=== PATIENT | female | born 1995 | race Caucasian/White ===

== ENCOUNTER 2018-02-01 17:22 | Emergency (ER) | payer MEDICAID, OTHER ==
[~2018-02-01] VITALS: Ht 172.7 cm; Wt 59.0 kg
[2018-02-01 17:30] VITALS: BP 113/74
[2018-02-01] MEDS ORDERED: ALBU18HF2 IH (17:32)
== END 2018-02-01 23:23 | disposition left against medical advice (07) ==
LOC: ER 17:48
DX: R06.02 Shortness of breath (principal); J45.909 Unspecified asthma, uncomplicated
CPT/HCPCS: 99281

== ENCOUNTER 2022-02-21 01:32 | Emergency (ER) | payer MEDICAID ==
[~2022-02-21] VITALS: Ht 172.7 cm; Wt 90.0 kg
[~2022-02-21 01:32] MED LIST: ALBU18HF2 IH
[2022-02-21 02:49] LABS: BASOPHILS % 0.3 % (0.0-2.0); EOSINOPHILS % 0.4 % (0.0-5.0); HEMATOCRIT. 41.4 % (36.0-48.0); HEMOGLOBIN. 13.7 g/dL (12.0-16.0); LYMPHOCYTES % 12.2 % (20.0-50.0); MEAN CORPUSCULAR HEMOGLOBIN 27.7 pg (28.0-32.0); MEAN CORPUSCULAR VOLUME 83.6 fL (81.0-99.0); MONOCYTES % 2.5 % (2.0-8.0); NEUTROPHILS % 84.6 % (40.0-76.0); PLATELET 291 x1000/uL (130-400); RED BLOOD CELL COUNT 4.95 mill/uL (4.2-5.4); RED CELL DISTRIBUTION WIDTH 13.7 % (11.6-14.6)
[2022-02-21 03:06] LABS: CHLORIDE 115 mEq/L (98-107)
[2022-02-21 03:14] LABS: ETHANOL BLOOD 189 mg/dL
[2022-02-21 04:00] VITALS: BP 129/83
[2022-02-21] MEDS ORDERED: ACETAMINOPHEN 500MG TABLET PO ONE (04:00)
[2022-02-21 05:40] LABS: *AMPHETAMINES SCREEN URINE NEGATIVE (NEGATIVE); *BARBITURATES SCREEN URINE NEGATIVE (NEGATIVE); *BENZODIAZEPINES SCREEN URINE NEGATIVE (NEGATIVE); *COCAINE SCREEN URINE NEGATIVE (NEGATIVE); CANNABINOID URINE SCREEN NEGATIVE (NEGATIVE); METHADONE URINE SCREEN NEGATIVE (NEGATIVE); OPIATES URINE SCREEN NEGATIVE (NEGATIVE); PHENCYCLIDINE URINE SCREEN NEGATIVE (NEGATIVE)
== END 2022-02-21 04:48 | disposition home or self-care (01) ==
LOC: ER 01:32
DX: F10.129 Alcohol abuse with intoxication, unspecified (principal); Y90.6 Blood alcohol level of 120-199 mg/100 ml
CPT/HCPCS: 36415; 80053; 80305; 80320; 85025; 99283; G0480